=== PATIENT | male | born 1980 | race Caucasian/White ===

== ENCOUNTER 2023-12-15 18:45 | Emergency (ER) | payer OTHER, SELFPAY ==
[2023-12-15] VITALS (12 sets, daily range): BP systolic 130–163; BP diastolic 78–99; PULSE 44–73; RESP 12–14; TEMP 36.6; O2SAT 93–98; BMI 25.0
--- NOTE | 2023-12-15 19:24 | ED_ITS ---
HPI - Animal Bite 2 General: Chief Complaint: Animal Bite Stated Complaint: Copperhead Bite Time Seen by Provider: 12/15/23 18:56 Source: patient History of Present Illness: Patient is a 42-year-old previously healthy male who states that around 6 PM this evening he was bitten by copperhead snake on the lateral aspect of the right foot on the dorsum of the foot. He has a picture of the snake that bit him that he had killed with a rock and was indeed a copperhead. He has 2 fang rosario to the dorsal lateral aspect of the right foot with some mild swelling to the foot and surrounding tenderness. Swelling is mild and isolated to the forefoot. He denies any other systemic symptoms such as vomiting, diaphoresis, or headache. No skin rashes or lesions. He has had some minimal nausea but no other complaints. MD complaint: animal bite Onset (ago): hour(s) (1) Animal: snake Mechanism: bite Associated symptoms: Deny chills, diaphoresis, fever(s) or headache(s) Review of Systems 2 Const: Denies: fever(s), chills or diaphoresis Card: Denies: chest pain Resp: Denies: dyspnea GI: Reports: nausea; Denies: abdominal pain or vomiting Skin/Breast: Denies: rash Neuro: Denies: headache(s) Physical Exam 2 Const: COMMON NORMALS: no acute distress, average body habitus, alert and well nourished GENERAL APPEARANCE: cooperative ORIENTATION/CONSCIOUSNESS: Yes awake HENMT: COMMON NORMALS: normocephalic and atraumatic HEAD & SCALP: n ormocephalic and atraumatic Eye: COMMON NORMALS: conjunctivae normal CONJUNCTIVA: Yes conjunctivae normal Neck/C-Spine: GENERAL: Yes normal visual inspection Resp: COMMON NORMALS: normal respiratory effort, No retractions and No use of accessory muscles Cardio: COMMON NORMALS: regular rhythm and Peripheral pulses 2+ throughout RHYTHM: regular rhythm PERIPHERAL PULSES: Peripheral pulses 2+ throughout GI: COMMON NORMALS: Soft to palpation and non-tender PALPATION: Yes Soft to palpation Extremity: COMMON NORMALS: full ROM and no pedal edema RIGHT LOWER EXTREMITY: Yes foot & digits OTHER: Patient has mild swelling to the dorsum of the right foot with 2 fang rosario and some mild tenderness surrounding the snakebite envenomation. 2+ DP and PT pulses bilaterally. No calf tenderness or swelling. Neuro: COMMON NORMALS: no focal motor deficits SENSORIUM/ORIENTATION: Yes alert Skin: COMMON NORMALS: no rashes or lesions noted GENERAL SKIN EXAM: no rashes or lesions noted Course 2 Vital Signs: Vital signs: Vital Signs Temperature 97.9 F 12/15/23 18:52 Pulse Rate 65 12/15/23 18:52 Respiratory Rate 14 12/15/23 22:01 Blood Pressure 143/99 12/15/23 18:52 Pulse Oximetry 98 12/15/23 18:52 Oxygen Delivery Me thod Room Air 12/15/23 18:52 MDM - Animal Bite Medical Decision Making Patient is a well-appearing 42-year-old male who sustained a snakebite envenomation to the dorsum of the right foot. He was bitten about 1 hour before arrival. He had mild swelling to the right foot on initial exam. He had 2+ DP and PT pulses on exam with mild surrounding tenderness to the dorsum of the foot. Basic labs including a CBC, CMP and PT/INR were obtained. No evidence of thrombocytopenia or coagulopathy. He has no other systemic symptoms or complaints. He is in no acute distress but does have understandable pain to the right foot and leg. He was observed in the ER for several hours. He has had some moderate progression of swelling to the right foot and lower leg. He continues to have warm foot with 2+ DP and PT pulses and normal motor and sensory function. He was given morphine and Dilaudid for pain control. He does state that Dilaudid seems to help quite a bit. His tetanus was updated. Repeat CBC and PT/INR was obtained and does not show any deterioration or any evidence of coagulopathy evolving. He continues to be well-appearing and feels comfortable with continuation of pain management and supportive care. I will go ahead and provide him additional dose of Dilaudid at this time and prescription for oxycodone and continuation Percocet at home. Return precautions were provided for increasing pain, numbness or tingling of the legs, weakness of the lower extremity, cool foot, or any other concerns. Lab Data I reviewed the patient's lab results. 12/15/23 22:54 12/15/23 19:27 Laboratory Results WBC 11.25 10^3/uL (3.29-11.43) 12/15/23 22:54 RBC 5.48 10^6/uL (3.85-5.65) 12/15/23 22:54 Hgb 17.00 g/dL (11.27-16.99) H 12/15/23 22:54 Hct 48.8 % (37-53) 12/15/23 22:54 MCV 89.1 fl (82-101) 12/15/23 22:54 MCH 31.0 pg (27-33) 12/15/23 22:54 MCHC 34.8 g/dL (30-55) 12/15/23 22:54 RDW 12.8 % (12.1-15.1) 12/15/23 22:54 Plt Count 271 10^3/cmm (157-399) 12/15/23 22:54 MPV 9.0 fL (7.4-10.4) 12/15/23 22:54 Neut % (Auto) 66.2 % 12/15/23 22:54 Lymph % (Auto) 25.5 % 12/15/23 22:54 Haakon % (Auto) 6.8 % 12/15/23 22:54 Eos % (Auto) 0.6 % 12/15/23 22:54 Baso % (Auto) 0.5 % 12/15/23 22:54 Neut # (Auto) 7.44 10^3/uL (1.8-7.7) 12/15/23 22:54 Lymph # (Auto) 2.9 10^3/uL (0.8-4.8) 12/15/23 22:54 Haakon # (Auto) 0.8 10^3/uL (0.2-0.9) 12/15/23 22:54 Eos # (Auto) 0.1 10^3/uL (0.0-0.8) 12/15/23 22:54 Baso # (Auto) 0.1 10^3/uL (0.0-0.1) 12/15/23 22:54 Nucleated RBC % (auto) 0 % 12/15/23 22:54 Nucleated RBCs # 0.0 /100WBC 12/15/23 22:54 PT 13.50 SECONDS (12.1-14.9) 12/15/23 22:54 INR 1.00 (0.8-1.2) 12/15/23 22:54 APTT 25.6 SECONDS (23.9-36.7) 12/15/23 19:27 Sodium 140 mmol/L (136-145) 12/15/23 19:27 Potassium 4.0 mmol/L (3.5-5.1) 12/15/23 19:27 Chloride 106 mmol/L (98-107) 12/15/23 19:27 Carbon Dioxide 23 mmol/L (22-29) 12/15/23 19:27 Anion Gap 15.0 (5-19) 12/15/23 19:27 BUN 13 mg/dL (6-20) 12/15/23 19:27 Creatinine 1.0 mg/dL (0.7-1.2) 12/15/23 19:27 GFR Calculation 81.6 mL/min (90-130) L 12/15/23 19:27 Glucose 107 mg/dL (65-115) 12/15/23 19:27 Calculated Osmolality 291 mOsm/kg (285-295) 12/15/23 19:27 Calcium 9.4 mg/dL (8.5-10.5) 12/15/23 19:27 Total Bilirubin 0.2 mg/dL (0.15-1.2) 12/15/23 19:27 AST 19 U/L (0-40) 12/15/23 19:27 ALT 21 U/L (0-41) 12/15/23 19:27 Alkaline Phosphatase 48 U/L (40-130) 12/15/23 19:27 Total Protein 7.1 g/dL (6.6-8.7) 12/15/23 19:27 Albumin 4.6 g/dL (3.5-5.2) 12/15/23 19:27 Globulin 2.5 g/dL (1.3-4.6) 12/15/23 19:27 No radiology studies performed this visit Discharge Plan Discharge Patient Disposition: Home Clinical Impression: Snake bite Qualifiers: Encounter type: initial encounter Qualified Code(s): W59.11XA - Bitten by nonvenomous snake, initial encounter Condition: Stable Prescriptions: New Percocet 10-325 mg tablet 1 tab PO Q6H Qty: 20 0RF Discharge Orders: Discharge ED (Routine); Ordered 12/15/23 Ordered By: Jim Mehta Patient Instructions: Opioid Safety, Pain Management, Snakebite Activity Restrictions/Additional Instructions: Take medication as directed. Keep your right leg elevated to help with swelling and pain. Follow-up with your PCP as needed next week. Return to the ER for any new or worsening symptoms, increasing pain, weakness or numbness or tingling of the foot or leg, or any other concerns. Coding Level of Care Code ED Home Teaching Grades 9 Thru 12 Teacher for Nisha Bach
--- NOTE | 2023-12-15 19:32 | ECG_ITS ---
[facility] Test Date: 2023-12-15 Pat Name: Arvind Coto Department: Room: Gender: Male Washer Operator: : 1980 Requested By: Jim Mehta Order Number: [id number] Terrell MD: Alexey Kumar M.D. Measurements Intervals [place] Rate: 71 P: 50 [place]: 138 QRS: 37 QRSD: 95 T: 41 QT: 369 QTc: 401 Interpretive Statements SINUS RHYTHM WITH SINUS ARRHYTHMIA No previous ECG available for comparison Electronically Signed On 12-16-2023 6:59:54 CDT by Alexey Kumar M.D. [email or web address]
[2023-12-15 19:34] LABS: Basophils # 0.1 10^3/uL (0.0-0.1); Basophils % 0.8 %; Eosinophils % 0.5 %; Hematocrit 48.6 % (37-53); Lymphocytes # 2.4 10^3/uL (0.8-4.8); Lymphocytes % 30.7 %; Mean Corpuscular Hemoglobin 31.5 pg (27-33); Mean Platelet Volume 9.5 fL (7.4-10.4); Monocytes # 0.5 10^3/uL (0.2-0.9); Monocytes % 6.7 %; Neutrophils # 4.82 10^3/uL (1.8-7.7); Neutrophils % 60.8 %; Nucleated Red Blood Cells % 0 %; Platelet Count 271 10^3/cmm (157-399); Red Cell Distribution Width 12.9 % (12.1-15.1); White Blood Count 7.92 10^3/uL (3.29-11.43)
[2023-12-15 19:43] LABS: INR 0.96 (0.8-1.2); Partial Thromboplastin Time 25.6 SECONDS (23.9-36.7)
[2023-12-15 19:49] LABS: Alanine Aminotransferase 21 U/L (0-41); Albumin Level 4.6 g/dL (3.5-5.2); Alkaline Phosphatase 48 U/L (40-130); Aspartate Amino Transferase 19 U/L (0-40); Blood Urea Nitrogen 13 mg/dL (6-20); Calcium 9.4 mg/dL (8.5-10.5); Carbon Dioxide 23 mmol/L (22-29); Chloride 106 mmol/L (98-107); Creatinine Clr Calc Pharmacy 92.5407; Globulin 2.5 g/dL (1.3-4.6); Glomerular Filtration Rate 81.6 mL/min (90-130); Glucose 107 mg/dL (65-115); Osmolality Calculated 291 mOsm/kg (285-295); Sodium 140 mmol/L (136-145); Total Bilirubin 0.2 mg/dL (0.15-1.2); Total Protein 7.1 g/dL (6.6-8.7)
[2023-12-15] MEDS: morphine 4 mg/mL SDV 1 mL IVP (20:34)
[2023-12-15] MEDS: tetanus-dipt-pertussis 0.5 mL SDV IM (20:35)
[2023-12-15] MEDS: HYDROmorphone 1 mg/mL INJ 1 mL IV (22:01)
[2023-12-15 22:58] LABS: Basophils # 0.1 10^3/uL (0.0-0.1); Basophils % 0.5 %; Eosinophils # 0.1 10^3/uL (0.0-0.8); Eosinophils % 0.6 %; Hematocrit 48.8 % (37-53); Lymphocytes # 2.9 10^3/uL (0.8-4.8); Lymphocytes % 25.5 %; Mean Corpuscular HGB Conc 34.8 g/dL (30-55); Mean Corpuscular Volume 89.1 fl (82-101); Monocytes # 0.8 10^3/uL (0.2-0.9); Monocytes % 6.8 %; Neutrophils # 7.44 10^3/uL (1.8-7.7); Neutrophils % 66.2 %; Nucleated Red Blood Cells % 0 %; Platelet Count 271 10^3/cmm (157-399); Red Blood Count 5.48 10^6/uL (3.85-5.65); Red Cell Distribution Width 12.8 % (12.1-15.1); White Blood Count 11.25 10^3/uL (3.29-11.43)
[2023-12-15] MEDS: HYDROmorphone 1 mg/mL INJ 1 mL IVP (23:34)
[2023-12-15] MEDS: oxyCODONE-APAP 10-325 mg Tablet 2 TAB PO (23:35)
== END 2023-12-16 | disposition home or self-care (01) ==
PROVIDERS: Emergency Provider Student in an Organized Health Care Education/Training Program
DX: T63.091A Toxic effect of venom of other snake, accidental (unintentional), initial encounter (principal); Z23 Encounter for immunization
CPT/HCPCS: 36415; 80053; 85025; 85610; 85730; 90471; 90715; 93005; 96374; 96375; 96376; 99284; J1170; J2270